=== PATIENT | female | born 1960 | race Caucasian/White ===

== ENCOUNTER 2024-02-13 06:08 | Inpatient (IN) | payer BC ==
[2024-02-13] MEDS ORDERED: Bupivacaine 0.25% HCL 30 ML VIAL ONE ×2 (06:31→06:32)
[2024-02-13] MEDS ORDERED: EPINEPHrine 1 MG/ML VIAL ONE (06:31)
[2024-02-13] MEDS ORDERED: Enoxaparin 40 MG (0.4 mL) SYRINGE ONE (06:38)
[2024-02-13] MEDS ORDERED: Dexamethasone 4 mg/ml Vial ONE (06:57)
[2024-02-13] MEDS ORDERED: Dexmedetomidine 200 MCG/2 ML VIAL ONE (06:57)
[2024-02-13] MEDS ORDERED: Lidocaine 1% PF 5 ML VIAL ONE (06:57)
[2024-02-13] MEDS ORDERED: fentaNYL PF 100 MCG/2 ML SYRINGE ONE ×2 (06:57→09:16)
[2024-02-13] MEDS ORDERED: Ondansetron PF 4 MG/2 ML Vial ONE ×2 (06:57→10:24)
[2024-02-13] MEDS ORDERED: Rocuronium Bromide 10 MG/ML (10ML VIAL) ONE (06:57)
[2024-02-13] MEDS ORDERED: PROPOFOL 0 ML ONE (06:57)
[2024-02-13] MEDS ORDERED: Sodium Chloride 0.9% 100 ML ONE (07:09)
[2024-02-13] MEDS ORDERED: cefOXitin 2 GM VIAL ONE (07:09)
[2024-02-13 07:12] LABS: #Basophils 0.04 10x3/uL (0.0-0.2); %Basophils 0.5 % (0.0-1.0); %Eosinophils 1.3 % (0.0-10.0); %Lymphocytes 23.6 % (21.0-51.0); %Monocytes 8.8 % (0.0-10.0); %Neutrophils 65.4 % (42.0-75.0); Hematocrit 42.9 % (36.0-47.0); Hemoglobin 14.1 g/dL (12.0-16.0); Mean Corpuscular HGB CONC 32.9 g/dL (32.0-36.0); Mean Corpuscular Hemoglobin 30.2 pg (27.0-31.0); Mean Corpuscular Volume 91.9 fL (78.0-98.0); Platelet Count 205 10x3/uL (130-400); Red Blood Cell (RBC) Count 4.67 mill/uL (4.20-5.40)
[2024-02-13] MEDS ORDERED: Scopolamine 1 mg/72 hour Patch ONE (07:20)
[2024-02-13] MEDS ORDERED: Etomidate 40 MG (20 mL) VIAL ONE (07:23)
[2024-02-13 07:43] LABS: Anion Gap 19 mmol/L (10-20); BUN (Urea Nitrogen) 37 mg/dL (9.8-20.1); Calc. Creatinine Clearance 108 mL/min (70-130); Calcium 10.4 mg/dL (7.8-10.44); Carbon Dioxide 19 mmol/L (23-31); Chloride 103 mmol/L (98-107); Estimated GFR 54; Glucose 84 mg/dL (80-115); Potassium 4.2 mmol/L (3.5-5.1); Sodium 137 mmol/L (136-145)
[2024-02-13] MEDS ORDERED: PHENYLEPHRINE-NS 100 MCG/ML 10 ML SYRINGE ONE (07:51)
[2024-02-13] MEDS ORDERED: SUGAMMADEX SODIUM 200 MG/2 ML VIAL ONE ×2 (08:38→08:49)
[2024-02-13] MEDS ORDERED: diphenhydrAMINE 50 MG/ML VIAL IVP PRN ×2 (08:57→09:08)
[2024-02-13] MEDS ORDERED: diphenhydrAMINE 25 MG CAP PO PRN (08:57)
[2024-02-13] MEDS ORDERED: Ondansetron PF 4 MG/2 ML Vial IVP PRN ×2 (08:57→09:08)
[2024-02-13] MEDS ORDERED: Promethazine HCl 25 MG/ML VIAL IM PRN ×3 (08:57→09:08)
[2024-02-13] MEDS ORDERED: diphenhydrAMINE 50 MG/ML VIAL IM PRN (08:57)
[2024-02-13] MEDS ORDERED: Ondansetron HCl/PF 4 MG/2 ML Vial IVP PRN (08:57)
[2024-02-13] MEDS ORDERED: Naloxone HCl 0.4 mg/ml Vial IV PRN (08:57)
[2024-02-13] MEDS ORDERED: HYDROmorphone/PF 10 MG in Sodium Chloride 0.9% 99 ML IV PRN (08:57)
[2024-02-13] MEDS ORDERED: ACTIVE PCA FS PRN (09:00)
[2024-02-13] MEDS ORDERED: Dextrose 50% Abboject 50 ML SYRINGE SLOW IVP PRN (09:08)
[2024-02-13] MEDS ORDERED: Glucagon 1 MG/ML KIT IM PRN (09:08)
[2024-02-13] MEDS ORDERED: Ipratropium/Albuterol 3 ML NEB NEB PRN (09:08)
[2024-02-13] MEDS ORDERED: hydrALAZINE 20 MG/ML VIAL SLOW IVP PRN (09:08)
[2024-02-13] MEDS ORDERED: Dextrose 5% in Water 1,000 ML IV PRN (09:08)
[2024-02-13 11:47] VITALS: BMI 50.8
[2024-02-13] MEDS: Ketorolac Tromethamine 30 MG (1 mL) VIAL IVP SCH (13:44)
[2024-02-13] MEDS: D5 1/2 NS w/20 mEq KCL 1,000 ML IV SCH (13:50)
[2024-02-13] MEDS: DULoxetine 60 MG CAP PO SCH (20:51)
[2024-02-14 03:18] VITALS: TEMP 97.8
[2024-02-14] MEDS ORDERED: Morphine 2 MG/ML VIAL SLOW IVP PRN (05:53)
[2024-02-14] MEDS ORDERED: Hydrocodone-Acetamin 15 ML UDCUP PO PRN (05:53)
[2024-02-14] MEDS: Levothyroxine Sodium 75 MCG TAB PO SCH (06:13)
[2024-02-14] MEDS: Pantoprazole 40 MG VIAL IVP SCH (08:20)
[2024-02-14] MEDS: Enoxaparin 40 MG (0.4 mL) SYRINGE SC SCH (08:20)
[2024-02-14 11:39] VITALS: BP 119/74
== END 2024-02-14 11:53 | disposition home or self-care (01) | DRG 620 ==
LOC: SURG A 06:08 → SURG B 10:45
PROVIDERS: ADMIT Surgery; ATTEND Surgery
PROC: 0DB64Z3 Excision of Stomach, Percutaneous Endoscopic Approach, Vertical (ICD-10-PCS; principal; 2024-02-13)
PROC: 8E0W4CZ Robotic Assisted Procedure of Trunk Region, Percutaneous Endoscopic Approach (ICD-10-PCS; 2024-02-13)
DX: E66.01 Morbid (severe) obesity due to excess calories (principal); I42.1 Obstructive hypertrophic cardiomyopathy; J96.11 Chronic respiratory failure with hypoxia; I50.32 Chronic diastolic (congestive) heart failure; R73.03 Prediabetes; E78.5 Hyperlipidemia, unspecified; E03.9 Hypothyroidism, unspecified; M17.0 Bilateral primary osteoarthritis of knee; F41.9 Anxiety disorder, unspecified; F32.A Depression, unspecified; E55.9 Vitamin D deficiency, unspecified; I11.0 Hypertensive heart disease with heart failure; Z88.0 Allergy status to penicillin; Z88.8 Allergy status to other drugs, medicaments and biological substances; Z95.810 Presence of automatic (implantable) cardiac defibrillator; Z90.49 Acquired absence of other specified parts of digestive tract; Z90.711 Acquired absence of uterus with remaining cervical stump; Z68.43 Body mass index [BMI] 50.0-59.9, adult; Z95.2 Presence of prosthetic heart valve; Z79.899 Other long term (current) drug therapy; Z79.890 Hormone replacement therapy; Z79.82 Long term (current) use of aspirin
CPT/HCPCS: 80048; 85025; 88307; 88341; 88342; 93005; 93010; C9113; J0171; J0665; J0694; J1100; J1650; J1885; J2405; J2704; J3480; J3490